=== PATIENT | female | born 1965 | race Caucasian/White ===

== ENCOUNTER → 2018-09-05 | Outpatient (CLI) | payer BC, OTHER | LOC: FIMAGING 14:49 | PROVIDERS: ATTEND Internal Medicine Pulmonary Disease | DX: R91.8 Other nonspecific abnormal finding of lung field (principal); R06.02 Shortness of breath; C77.1 Secondary and unspecified malignant neoplasm of intrathoracic lymph nodes; R91.1 Solitary pulmonary nodule; J90 Pleural effusion, not elsewhere classified ==

== ENCOUNTER → 2018-09-11 | Day surgery (SDC) | payer OTHER ==
[~2018-09-11] MED LIST: ALTEPLASE 2 MG VIAL IVP PRN; FLUMAZENIL 0.5 MG/5 ML MDV IVP PRN; GLUCAGON HCL 1 MG VIAL IVP PRN; HEPARIN 10,000 UNIT/10 ML MDV (1,000 UNIT/ML) IVP PRN; LIDOCAINE 1% 300 MG/30 ML SDV ONE; MEPERIDINE 25 MG/ML SYR IVP PRN; MIDAZOLAM 2 MG/2 ML VIAL IVP PRN; MIDAZOLAM 2 MG/2 ML VIAL ONE; NALOXONE HCL 0.4 MG/ML INJ IVP PRN; NS 1,000 ML IV SCH; PROTAMINE SULFATE 50 MG/5 ML VIAL IVP PRN; ceFAZolin 2 GM/DEXTROSE 100 ML IV ONE; fentaNYL 100 MCG/2 ML INJ IVP PRN; fentaNYL 100 MCG/2 ML INJ ONE
[2018-09-11 11:56] LABS: INR 1.22 (0.83-1.16); PROTIME(PATIENT) 15.6 SEC (12.0-15.0)
--- NOTE | 2018-09-11 15:04 | PDPROPOC ---
Sedation Plan of Care Sedation Plan of Care: vital signs stable, mental status noted, patient educated of risks, benefits, alternatives, patient can tolerate sedation ASA Classification: ASA 2 Planned drugs: fentanyl, midazolam Mallampati Score: Class 2 Mallampati Reference Image: Patient passed 3-3-2 rule?: Yes
--- NOTE | 2018-09-11 15:04 | PDGENHP ---
History & Physical Chief Complaint: MEDIASTINAL Mass History of Present Illness: Mediastinal mass Relevant Physical Exam: comfortable Cardiorespiratory Assessment: RRR & clear lungs
--- NOTE | 2018-09-11 15:06 | PDRADPN ---
Radiology Procedure Note Date of Procedure: 09/11/18 Radiologist: Mike Maddox Anesthesiologist: none Pre-op Diagnosis: Mediastinal mass Post-op Diagnosis: same Indication: Mediastinal mass Procedure: CT guided mediastinal mass biopsy Finding(s): No bleed or pneumothorax Inf/Abcess present in the surg proc area at time of surgery?: No Depth: Organ Space (Anterior mediastinum) EBL: Minimal Complications: No immediate complication Drains: Other (None)
[2018-09-11 15:42] VITALS: BP 128/81
== END | disposition home or self-care (01) ==
LOC: FIMAGING 10:20
PROVIDERS: ATTEND Internal Medicine Critical Care Medicine
PROC: 0WBC3ZX Excision of Mediastinum, Percutaneous Approach, Diagnostic (ICD-10-PCS; principal; 2018-09-11 13:29)
DX: D38.3 Neoplasm of uncertain behavior of mediastinum (principal); J98.59 Other diseases of mediastinum, not elsewhere classified; J44.9 Chronic obstructive pulmonary disease, unspecified; R91.1 Solitary pulmonary nodule; J90 Pleural effusion, not elsewhere classified
CPT/HCPCS: 88323-90; 88342; J0690; J2250; J3010